=== PATIENT | male | born 1975 | race Caucasian/White ===

== ENCOUNTER 2022-08-04 14:48 | Outpatient (RCR) | payer BC | END 2022-08-14 | LOC: PT 14:48 | PROVIDERS: ATTEND Podiatrist Foot & Ankle Surgery | DX: M76.62 Achilles tendinitis, left leg (principal) ==

== ENCOUNTER 2022-08-18 07:17 | Outpatient (RCR) | payer BC | END 2022-09-13 | LOC: PT 07:17 | PROVIDERS: ATTEND Podiatrist Foot & Ankle Surgery | DX: M76.62 Achilles tendinitis, left leg (principal) ==

== ENCOUNTER → 2024-01-13 | Outpatient (REF) | payer BC | LOC: DX 14:27 | PROVIDERS: ATTEND Internal Medicine Infectious Disease | DX: M86.272 Subacute osteomyelitis, left ankle and foot (principal) | CPT/HCPCS: 36569; 71045 ==